=== PATIENT | male | born 1945 | race Caucasian/White ===

== ENCOUNTER 2017-01-30 10:23 | Day surgery (SDC) | payer OTHER ==
[2017-01-29 15:48] VITALS: BMI 35.0
[~2017-01-30] VITALS: Ht 175.3 cm; Wt 109.1 kg
[~2017-01-30 10:23] MED LIST: ASPI81TA28 PO; ATOR-24 PO; ATV/1 PO; CARV6.252 PO; CHOL1000 PO; DOCU-94 PO; INSDGI SC; LACTATED RINGER'S 1000ML 1,000 ML IV ONE; LACTATED RINGER'S 1000ML 1,000 ML IV SCH; LEVO112T2 PO; LOSA1TAB PO; METF-384 PO; NVLGI7030 SC; PANT40TA PO; SERT-234 PO; TRAZ100T29 PO
--- NOTE | 2017-01-30 10:36 | Endo History and Physical ---
History & Physical Date of Service: Jan 30, 2017. Chief Complaint: Abdominal pain Referring Physician: Dr. Lamont Chew History of Present Illness The patient presents for ERCP today for a biliary stent removal. He had undergone an ERCP approximately 2 weeks ago for complications of a retained common bile duct stone. Over the last week he has noted intermittent right- sided abdominal discomfort associated with nausea and vomiting. He presents today for biliary stent removal for suspected occluded biliary stent. Past Medical History Diabetes, Gastrointestinal Disorder, Heart Disease, Hypertension, Thyroid Disease Hypothyroidism Hypercholesterolemia Past Surgical History Hx Cardiac Surgery: Yes (TRIPLE BYPASS, CATH/COATED STENT ) Hx Abdominal Surgery: Yes (GABINO, APPENDECTOMY ) Hx Post-Op Nausea and Vomiting: No Hx Cancer Surgery: No Hx Thoracic Surgery: No Hx Orthopedic: Yes (L TKA, R ROTATOR CUFF, R CARPAL TUNNEL, L CARPAL TUNNEL) Hx Urinary Tract Surgery: No Cholecystectomy Social History Smoking Status: Never Smoker Hx Substance Use: No Hx Alcohol Use: No Allergies Coded Allergies: Gabapentin (Verified Adverse Reaction, Unknown, agitated, 01/29/17) Lisinopril (Verified Adverse Reaction, Unknown, cough, 01/29/17) Pregabalin (Verified Adverse Reaction, Unknown, agitated, 01/29/17) Current Medications Reported Home Medications Medications Dose Route/Sig Max Daily Dose Days Date Category Dose Instructions Glucophage (Metformin Hcl) 1,000 Mg Tab 1,000 Mg PO BID 01/29/17 Reported pt has been off this for 2 weeks due to recent health issues and doctor instructions Colace (Docusate Sodium) 100 Mg Cap 1 Cap PO UD PRN 30 01/29/17 Reported Ativan (Lorazepam) 1 Mg Tab 1 Mg PO Q6H PRN 01/29/17 Reported Novolog Mix 70/30 (Insulin Aspart Prota 70%/Aspart 30%) Susp 18 Units SC AC 01/29/17 Reported Lantus (Insulin Glargine) 100 Unit/Ml Inj 48 Units SC QAM 01/29/17 Reported Trazodone (Trazodone HCl) 100 Mg Tab 100 Mg PO HS 01/29/17 Reported Lipitor (Atorvastatin Calcium) 40 Mg Tab 40 Mg PO BID 01/29/17 Reported Protonix (Pantoprazole Sodium) 40 Mg Tab 40 Mg PO BID 01/29/17 Reported Coreg (Carvedilol) 6.25 Mg Tab 0.5 Tab PO BID 01/29/17 Reported Cozaar (Losartan Potassium) 25 Mg Tab 25 Mg PO QAM 01/29/17 Reported Zoloft (Sertraline HCl) 100 Mg Tab 100 Mg PO QAM 01/29/17 Reported Synthroid (Levothyroxine Sodium) 112 Mcg Tab 112 Mcg PO QAM 01/29/17 Reported Aspirin Ec (Aspirin) 81 Mg Tab 81 Mg PO QAM 01/29/17 Reported pt stopped this yesterday per dr jade instruction Vitamin D3 (Cholecalciferol) 1,000 Unit Tab 1 Tab PO QAM 90 01/29/17 Reported Vital Signs Weight (Kilograms): 109.09 Height (Feet): 5 Height (Inches): 9 Physical Exam General Appearance: no apparent distress Respiratory/Chest: Auscultation: breath sounds normal Cardiovascular: Heart Auscultation: RRR Abdomen: Inspection & Palpation: soft, RUQ tenderness Assessment and Plan ERCP today for a suspected occluded biliary stent. We've discussed the risks and benefits to include bleeding, infection, perforation, pancreatitis, failed cannulation and need for follow-up procedures.
[2017-01-30 10:52] VITALS: BP 127/77; PULSE 87; TEMP 36.6; O2SAT 96; Ht 175.3 cm; Wt 109.1 kg
[2017-01-30 11:19] LABS: BASO % 0.3 %; BASO ABS # 0.02 K/uL (0-0.2); EOS % 1.7 %; HEMATOCRIT 37.4 % (42-52); IG% 0.3 %; LYMPH % 17.5 %; LYMPH ABS # 1.37 K/uL (1.2-3.4); MEAN CORPUSCULAR HEMOGLOBIN 30.2 pg (25-34); MEAN PLATELET VOLUME 10.1 fL (7.4-10.4); MONO % 8.4 %; NEUT % 71.8 %; PLATELET COUNT 227 K/uL (130-400); RED BLOOD COUNT 4.11 M/uL (4.7-6.1); WHITE BLOOD COUNT 7.85 K/uL (4.8-10.8)
[2017-01-30] MEDS ORDERED: INDOMETHACIN 50 MG SUPP PR SCH (11:30)
[2017-01-30 11:33] LABS: COMPLETE YES; MEAN CORPUSCULAR HGB CONC 33.2 g/dl (32-36)
[2017-01-30 11:46] LABS: ALB/GLOB RATIO 0.6 (0.9-2); BUN/CREATININE RATIO 17.9 (10-20); CREATININE 0.8 mg/dl (0.60-1.40); POTASSIUM 4.5 mmol/L (3.5-5.1)
[2017-01-30] MEDS ORDERED: LIDOCAINE HCL 2% 2 ML VIAL (20MG/ML) ONE (11:54)
[2017-01-30] MEDS ORDERED: NEOSTIGMINE METHYLSULFATE 5 MG/5 ML SYR ONE (11:54)
[2017-01-30] MEDS ORDERED: ROCURONIUM BROMIDE 10 MG/ML 5 ML VIAL IV ONE (11:54)
[2017-01-30] MEDS ORDERED: SUCCINYLCHOLINE CHLORIDE 20 MG/ML 10 ML VIAL IV ONE (11:54)
[2017-01-30] MEDS ORDERED: PROPOFOL IV EMULSION 10 MG/ML 20 ML VIAL IV ONE (11:54)
[2017-01-30] MEDS ORDERED: ONDANSETRON INJ 2 MG/ML 2 ML VIAL ONE (11:54)
[2017-01-30] MEDS ORDERED: DEXAMETHASONE SOD INJ 4 MG/ML VIAL ONE ×2 (11:54→12:21)
[2017-01-30] MEDS ORDERED: EpHEDrine SULFATE INJ 50 MG/ML AMP ONE (11:54)
[2017-01-30] MEDS ORDERED: PHENYLEPHRINE HCL INJ 10 MG/ML VIAL ONE (11:54)
[2017-01-30] MEDS ORDERED: GLYCOPYRROLATE INJ 0.2 MG/ML VIAL ONE (11:54)
[2017-01-30] MEDS ORDERED: FENTANYL CITRATE INJ 50 MCG/1 ML 2 ML VIAL ONE (11:55)
--- NOTE | 2017-01-30 12:47 | [facility] Post Operative Brief Note ---
Immediate Operative Summary Operative Date Jan 30, 2017. Pre-Operative Diagnosis Biliary Stent Occlusion Post-Operative Diagnosis same as pre-operative Procedure(s) Performed Endoscopic Retrograde Cholangiopancreatogram Surgeon Dr. Anthony Callahan Assistant Coach Surgeon(s) endo staff Estimated Blood Loss none Findings Occluded biliary stent Specimens none Anesthesia General Complication(s) None Disposition Recovery Room / PACU
--- NOTE | 2017-01-30 12:49 | Discharge Instructions ---
Endoscopy Patient Instructions Date / Procedure(s) Performed Jan 30, 2017. ERCP Allergy Information Coded Allergies: Gabapentin (Verified Adverse Reaction, Unknown, agitated, 01/29/17) Lisinopril (Verified Adverse Reaction, Unknown, cough, 01/29/17) Pregabalin (Verified Adverse Reaction, Unknown, agitated, 01/29/17) Discharge Date / Findings Jan 30, 2017. Occluded biliary stent Patent biliary sphincterotomy Sludge and debris found in the common bile duct Medication Instructions Reported Home Medications Medications Dose Route/Sig Max Daily Dose Days Date Category Dose Instructions Glucophage (Metformin Hcl) 1,000 Mg Tab 1,000 Mg PO BID 01/29/17 Reported pt has been off this for 2 weeks due to recent health issues and doctor instructions Colace (Docusate Sodium) 100 Mg Cap 1 Cap PO UD PRN 30 01/29/17 Reported Ativan (Lorazepam) 1 Mg Tab 1 Mg PO Q6H PRN 01/29/17 Reported Lantus (Insulin Glargine) 100 Unit/Ml Inj 48 Units SC QAM 01/29/17 Reported Trazodone (Trazodone HCl) 100 Mg Tab 100 Mg PO HS 01/29/17 Reported Lipitor (Atorvastatin Calcium) 40 Mg Tab 40 Mg PO BID 01/29/17 Reported Protonix (Pantoprazole Sodium) 40 Mg Tab 40 Mg PO BID 01/29/17 Reported Coreg (Carvedilol) 6.25 Mg Tab 0.5 Tab PO BID 01/29/17 Reported Cozaar (Losartan Potassium) 25 Mg Tab 25 Mg PO QAM 01/29/17 Reported Zoloft (Sertraline HCl) 100 Mg Tab 100 Mg PO QAM 01/29/17 Reported Synthroid (Levothyroxine Sodium) 112 Mcg Tab 112 Mcg PO QAM 01/29/17 Reported Aspirin Ec (Aspirin) 81 Mg Tab 81 Mg PO QAM 01/29/17 Reported pt stopped this yesterday per dr callahan instruction Vitamin D3 (Cholecalciferol) 1,000 Unit Tab 1 Tab PO QAM 90 01/29/17 Reported Provider Instructions Activity Restrictions - No exercising or heavy lifting for 24 hours. - Do not drink alcohol the day of the procedure. - Do not drive a car or operate machinery until the day after the procedure. - Do not make any important decisions or sign important papers in 24 hours after the procedure. Following Day: - Return to full activity which may include returning to work/school. Diet Clear liquid diet Regular diet on Friday Treatment For Common After Affects For mild abdominal pain, bloating, or excessive gas: - Rest - Eat lightly - Lie on right side Follow-Up Information Follow-up with Dr. Callahan as needed Clear liquid diet today Regular diet on Friday Repeat liver enzymes studies in 1 week Anesthesia Information What You Should Know You have had a procedure that required some medicine to reduce anxiety and discomfort. This treatment is called moderate sedation. After receiving the treatment, you may be sleepy, but you will be able to breathe on your own. The effects of the treatment may last for several hours. Follow these instructions along with Activity/Diet recommendations noted above: * Do NOT do anything where dizziness or clumsiness would be dangerous. * Rest quietly at home today, then you can be up and about tomorrow. * Have a responsible person stay with you the rest of today. * You may have had an I.V. today. If so, you may take the dressing off later today. Recommendations Call your doctor if: * Trouble breathing * Continuous vomiting for more than 24 hours * Temperature above 101 degrees * Severe abdominal pain or bloating * Pain not relieved by pain medicine ordered * There is increased drainage or redness from any incision * A large amount of rectal bleeding greater than 2-3 tablespoons. (If you had a polyp/s removed or have hemorrhoids, a small amount of blood - from the rectum is to be expected.) * You have any unanswered questions or concerns. IN THE EVENT OF A SERIOUS EMERGENCY, GO TO THE NEAREST EMERGENCY ROOM Your discharge instructions were prepared by provider Anthony Callahan. Patient Instructions Signature Page Boaz Chan Patient (or Guardian) Signature/Date: I have read and understand the instructions given to me by my caregivers. Caregiver/RN/Doctor Signature/Date: The above-named patient and/or guardian has received patient instructions on this date. + Original Patient Signature Page (only) stays with chart. Please make copy for patient.
[2017-01-30] MEDS ORDERED: ATROPINE SULFATE 0.1 MG/ML 5ML SYR IV PRN (13:00)
[2017-01-30] MEDS ORDERED: EpHEDrine SULFATE INJ 50 MG/ML AMP IV PRN (13:00)
[2017-01-30] MEDS ORDERED: ONDANSETRON INJ 2 MG/ML 2 ML VIAL IV PRN (13:00)
--- NOTE | 2017-01-30 13:07 | DIAGNOSTIC IMAGING REPORT ---
ERCP BILIARY DUCTAL CLINICAL HISTORY: ERCP COMPARISON STUDY: None. FLUOROSCOPY TIME: 1 minute and 12 seconds. 13 fluoroscopic spot images of the right upper quadrant.. FINDINGS: An endoscope is seen at the second portion of the duodenum. There is an indwelling common bile duct stent. The stent was removed. A guidewire and contrast were placed in the common bile duct. A balloon sweep was performed. IMPRESSION: Fluoroscopy provided for ERCP. Electronically signed by: Rubne Fernandez M.D. 01/30/2017 1:05 PM Dictated Date/Time: 01/30/2017 12:59 PM
--- NOTE | 2017-01-30 13:36 | Anesthesiology Progress Note ---
Anesthesia Post Op Note Date & Time Jan 30, 2017 at 13:35 Vital Signs Pain Intensity: 0 Vital Signs Past 12 Hours Date Time Temp Pulse Resp B/P (MAP) Pulse Ox O2 Delivery O2 Flow Rate FiO2 01/30/17 13:20 66 13 116/68 91 Room Air 01/30/17 13:10 67 17 111/66 93 Room Air 01/30/17 13:00 65 14 95/63 99 Oxymask 10 01/30/17 12:50 36.5 69 25 88/57 99 Oxymask 10 01/30/17 10:52 36.6 87 20 127/77 (94) 96 Room Air Notes Mental Status: alert / awake / arousable, participated in evaluation Pt Amnestic to Procedure: Yes Nausea / Vomiting: adequately controlled Pain: adequately controlled Airway Patency, RR, SpO2: stable & adequate BP & HR: stable & adequate Hydration State: stable & adequate Anesthetic Complications: no major complications apparent
[2017-01-30 13:40] VITALS: BP 137/72; PULSE 65; TEMP 36.9; O2SAT 94
[2017-01-30 14:15] VITALS: BP 137/73; PULSE 69; O2SAT 94
[2017-01-30 14:45] VITALS: BP 149/81; PULSE 77; TEMP 36.1; O2SAT 94
[2017-01-30 15:30] VITALS: BP 130/76; PULSE 76; TEMP 36.6; O2SAT 94
--- NOTE | 2017-01-31 00:15 | GI REPORT ---
Procedure Date: 01/30/2017 11:55 AM Procedure: ERCP Indications: Abdominal pain of suspected biliary origin, Abnormal liver function test, Stent removal Medicines: General Anesthesia, Indocin 100 mg LA Complications: No immediate complications. Estimated blood loss: Minimal. Estimated Blood Loss: Estimated blood loss was minimal. Procedure: Pre-Anesthesia Assessment: - Prior to the procedure, a History and Physical was performed, and patient medications, allergies and sensitivities were reviewed. The patient's tolerance of previous anesthesia was reviewed. - The risks and benefits of the procedure and the sedation options and risks were discussed with the patient. All questions were answered and informed consent was obtained. - Patient identification and proposed procedure were verified prior to the procedure by the physician, the nurse and the machine tailer. The procedure was verified in the procedure room. - Pre-procedure physical examination revealed no contraindications to sedation. - ASA Grade Assessment: III - A patient with severe systemic disease. - After reviewing the risks and benefits, the patient was deemed in satisfactory condition to undergo the procedure. - The anesthesia plan was to use general anesthesia. - Immediately prior to administration of medications, the patient was re-assessed for adequacy to receive sedatives. - The heart rate, respiratory rate, oxygen saturations, blood pressure, adequacy of pulmonary ventilation, and response to care were monitored throughout the procedure. - The physical status of the patient was re-assessed after the procedure. After obtaining informed consent, the scope was passed under direct vision. Throughout the procedure, the patient's blood pressure, pulse, and oxygen saturations were monitored continuously. The scope was introduced through the mouth, and advanced to the duodenum and used to inject contrast into the bile duct. The ERCP was accomplished without difficulty. The patient tolerated the procedure well. Findings: A supervisor motor vehicle assembly film of the abdomen was obtained. Surgical clips, consistent with previous cholecystectomy, were seen in the area of the right upper quadrant of the abdomen. One stent ending in the main bile duct was seen. The total fluoroscopy exposure time was 1 minute and 19 seconds. One biliary stent originating in the biliary tree was emerging from the major papilla. The stent was partially occluded. A biliary sphincterotomy had been performed. The sphincterotomy appeared open. One stent was removed from the biliary tree using a snare. The bile duct was deeply cannulated with the short-nosed traction sphincterotome (omni 35) and 0.035 in [employer] guidewire during the first cannulation attempt. Contrast was injected. I personally interpreted the bile duct images. Contrast extended to the hepatic ducts. A cholecystectomy had been performed. The entire biliary tree mildly dilated. The largest diameter was 8 mm. To discover objects, the biliary tree was swept with a 8.5 to 15 mm balloon starting at the bifurcation multiple times. Sludge was swept from the duct. An occlusion cholangiogram showed no persistent defects or stricture. The biliary tree appeared to be draining well at the end of the procedure. The endoscope was withdrawn from the patient. Impression: - One partially occluded stent from the biliary tree was seen in the major papilla. - Prior biliary endoscopic sphincterotomy appeared open. - One stent was removed from the biliary tree. - The patient has had a cholecystectomy. - The entire main bile duct was mildly dilated. - The biliary tree was swept and sludge was found. Recommendation: - Discharge patient to home (ambulatory). - Clear liquid diet today. - Observe patient's clinical course following today's ERCP with therapeutic intervention. Anthony Callahan D.O. Anthony Callahan, 01/30/2017 12:53:03 PM This report has been signed electronically. Note Initiated On: 01/30/2017 11:55 AM I attest to the content of the Intraoperative Record and orders documented therein, exceptions below
== END 2017-01-30 15:35 | disposition home or self-care (01) ==
LOC: EDBD → C.ACU 10:23
PROVIDERS: ATTEND Internal Medicine Gastroenterology
DX: Z45.89 Encounter for adjustment and management of other implanted devices (principal); R79.89 Other specified abnormal findings of blood chemistry; E11.9 Type 2 diabetes mellitus without complications; K21.9 Gastro-esophageal reflux disease without esophagitis; I10 Essential (primary) hypertension; E03.9 Hypothyroidism, unspecified; E78.00 Pure hypercholesterolemia, unspecified; Z95.5 Presence of coronary angioplasty implant and graft; Z90.49 Acquired absence of other specified parts of digestive tract; Z90.89 Acquired absence of other organs; Z96.652 Presence of left artificial knee joint; Z79.84 Long term (current) use of oral hypoglycemic drugs; Z79.4 Long term (current) use of insulin; Z79.82 Long term (current) use of aspirin; M19.90 Unspecified osteoarthritis, unspecified site; G47.33 Obstructive sleep apnea (adult) (pediatric)